=== PATIENT | female | born 1985 | race Caucasian/White ===

== ENCOUNTER 2020-07-16 17:09 | Emergency (ER) | payer SELFPAY ==
[2020-07-16] VITALS (17 sets, daily range): BP systolic 134–172; BP diastolic 97–121; PULSE 82–122; RESP 10–29; TEMP 36.5–36.6; O2SAT 96–100
[2020-07-16] MEDS: Normal Saline 1,000 ML 1000 ML IV (17:30)
[2020-07-16] MEDS: Normal Saline Flush 10 ML SYR IVP (17:30)
[2020-07-16] MEDS: methylPREDNISolone SUCC 125 MG VIAL IVP (17:35)
--- NOTE | 2020-07-16 17:35 | ED.GENADUL_ITS ---
Discharge Plan Disposition Patient Disposition: HOME Condition: Stable Discharge Details Chief Complaint: Allergic Clinical Impression: Allergic reaction, Hypertension Primary Care Provider: Unknown,Unknown ED Provider: Maura Terrazas Home Meds and New Rx's Prescriptions: New Bystolic 10 mg tablet 10 mg PO BID Qty: 60 RF: 0 prednisone 50 mg tablet 50 mg PO DAILY Qty: 4 RF: 0 epinephrine [EpiPen 2-Nathaniel] 0.3 mg/0.3 mL auto-injector 0.3 mg IM Q5-15M PRNQty: 2 RF: 3 Discharge Instructions Instructions: Prednisone (By mouth), Epinephrine (Injection), Nebivolol (By mouth), Hypertension (ED), General Allergic Reaction (ED) Additional Instructions: Please return immediately to the emergency department if you develop any new or worsening symptoms, if your condition does not improve as expected, or if you become otherwise concerned. It is extremely important that you call soon as possible to make an appointment to be seen in follow-up for this visit by your primary care doctor. Stand Alone Forms: Work Release Medical Decision Making Oly Gardner is a 35-year-old woman without reported history of major medical problems who presented to the emergency department with generalized itchy rash, swelling of both hands upon waking, possible wasp sting without other known exposure. On exam patient is well and nontoxic-appearing with generalized fine urticarial rash and bilateral hand swelling. No edema of the oropharynx, no impending airway compromise. Concern for likely allergic reaction versus other. Known hypertension, not currently being treated currently to patient having recently moved and without PCP. No evidence of endorgan damage. Exam/history is not consistent with hypertensive emergency, acute coronary syndrome, toxic shock syndrome, TEN, [place]-Lenny syndrome. Plan for IV fluid hydration, IV Benadryl/Solu-Medrol/Pepcid, screening labs, will monitor and reassess. Patient with significant improvement in appearance of rash and itching approximately 20 minutes after medications administered. We will continue to monitor. Patient reports rash essentially gone, no further itching, hand swelling improved but not resolved. UA negative, urine negative. Labs not resulted at this time, patient elects not to wait, would like to be discharged. Plan to discharge with patient's previously prescribed hypertension medication, EpiPen, prednisone. Had a lengthy discussion with the patient regarding medication use. I had a lengthy discussion with Patient regarding return to emergency department precautions, home care, and importance of outpatient follow-up. Pt verbalizes understanding of the plan and is amenable. Patient discharged to home with clear plan for outpatient follow-up. All questions were answered. Disposition decision was made weighing the risks and benefits of hospitalization versus outpatient treatment, the risk for further decompensation, and the patient's wishes. Pt placed on care management list to establish with PCP, for outpatient follow- up for hypertension/allergic reaction. Medical Records Medical records reviewed: Yes I reviewed the patient's medical records. Lab Data Lab results reviewed: Yes I reviewed the patient's lab results. Labs: Laboratory Tests Range/Units 07/16/20 07/16/20 07/16/20 19:55 20:45 20:45 WBC (4.4-10.8) 10^3/uL 7.46 RBC (3.93-5.22) 10^6/uL 4.99 Hgb (11.2-15.7) g/dL 14.9 Hct (36.0-46.0) % 44.1 MCV (80-95) fL 88.4 MCH (27.0-33.0) pg 29.9 MCHC (32.0-36.0) % 33.8 RDW (11.7-14.6) % 12.7 Plt Count (130-400) 10^3/uL 179 MPV (8.0-11.0) fL 10.8 Immature Gran % 0.3 Neutrophils % 85.3 Lymphocytes % 13.1 Monocytes % 1.2 Eosinophils % 0.0 Basophils % 0.1 Nucleated RBC % % 0 Absolute Neutrophils (1.2-6.7) 10^3/uL 6.36 Absolute Lymphocytes (1.2-3.4) 10^3/uL 0.98 L Absolute Monocytes (0.1-0.8) 10^3/uL 0.09 L Absolute Eosinophils (0.0-0.7) 10^3/uL 0.00 Absolute Basophils (0.0-0.2) 10^3/uL 0.01 Sodium (136-145) mmol/L 137 Potassium (3.5-5.1) mmol/L 4.2 Chloride (98-107) mmol/L 103 Carbon Dioxide (21.0-32.0) mmol/L 25.5 Anion Gap (3-11) mmol/L 8.5 BUN (7-18) mg/dL 13 Creatinine (0.55-1.02) mg/dL 0.82 Estimated GFR/1.73 m2 (mL/min/1.73m2) >= 60.00 Glucose (74-106) mg/dL 129 H Calcium (8.5-10.1) mg/dL 8.2 L Total Bilirubin (0.2-1.0) mg/dL 0.4 AST (15-37) U/L 36 ALT (14-59) U/L 66 H Alkaline Phosphatase (46-116) U/L 63 Total Protein (6.4-8.2) g/dL 7.3 Albumin (3.4-5.0) g/dL 3.5 Urine Color (Yellow) Yellow Urine Clarity (Clear) Clear Urine pH (5-8) 6.0 Ur Specific [place] (1.005-1.025) 1.020 Urine Protein (Negative) mg/dL Negative Urine Ketones (Negative) mg/dL Negative Urine Blood (Negative) Negative Urine Nitrite (Negative) Negative Urine Bilirubin (Negative) Negative Urine Urobilinogen (Up TO 0.2) EU/dL 0.2 Ur Leukocyte Esterase (Negative) Negative Urine Glucose (Negative) mg/dL Negative HPI General Mode of arrival: ambulatory . Date/Time Provider Initiated Documentation: 07/16/20 17:29 . Limitations to Documentation: no limitations . Information obtained by: patient, RN notes reviewed and old records reviewed . HPI Narrative: Oly Gardner is a 35-year-old woman with a history of hypertension presenting to the emergency department with hives and itching. Patient reports that she has been feeling well and in her usual state of health until she woke up today. Patient works the film processing shift supervisor, and woke up at 4 PM this afternoon. Patient reports that upon waking, she noticed that she had itchy hives over her legs and forearms, which spread progressively over her abdomen, chest, back. Patient also reports that she had swelling of both hands upon waking that has gradually gotten worse. She states that she noticed a wasp on her pillow after waking, and is unsure whether she was stung or not. She denies shortness of breath, facial swelling, throat tightness, tongue or lip swelling, any pain, fevers, cough, vomiting, diarrhea, numbness, localized weakness. Patient denies ever having similar symptoms in the past. Has had multiple be and lost things in the past without reaction. Patient denies any known new food/detergent/other exposures, denies new meds. Patient denies drug allergies or known environmental allergies. Patient denies any recent illness. Has been eating and drinking as usual. Patient reports that she recently moved here and does not have a primary care doctor. Patient reports that she has had high blood pressure since being in the past, and was previously taking 10 mg of Bystolic twice daily. Patient reports that she has not been taking her blood pressure medication recently as she ran out and has not established care with a primary care doctor. Related Data Home Medications Medication Instructions Recorded Confirmed epinephrine [EpiPen 2-Nathaniel] 0.3 mg IM Q5-15M PRN #2 each 07/16/20 nebivolol [Bystolic] 10 mg PO BID #60 tab 07/16/20 prednisone 50 mg PO DAILY #4 tab 07/16/20 Previous Rx's Medication Instructions Recorded epinephrine [EpiPen 2-Nathaniel] 0.3 mg IM Q5-15M PRN #2 each 07/16/20 nebivolol [Bystolic] 10 mg PO BID #60 tab 07/16/20 prednisone 50 mg PO DAILY #4 tab 07/16/20 Allergies Allergy/AdvReac Type Severity Reaction Status Date / Time No Known Allergies Allergy Unverified 07/16/20 17:18 General Stated Complaint: Allergic BUSTER: 3 Review of Systems Narrative: Constitutional: denies fevers Eyes: denies eye pain ENT: denies ear pain, dental pain, sore throat Cardiovascular: denies chest pain, reports hand swelling as per HPI Respiratory: denies SOB, cough GI: denies abdominal pain, vomiting, diarrhea : denies flank pain MSK: denies back pain, neck pain, arthralgias, myalgias Skin: Reports itching, rash as per HPI Neuro: denies headaches, numbness, weakness [facility] Social History Smoking/Tobacco Use Status: Current every day Tobacco Type: cigarettes Substance use type: does not use Exam Narrative Exam Narrative: Constitutional: well and [id number], pleasant, conversing normally HENT: head atraumatic/normocephalic/normal inspection, mucous membranes moist, uvula midline, no edema of the lips or tongue no drooling or pooling of secretions, normal voice Eyes: conjunctiva normal, sclera normal, pupils 3mm b/l Neck: no stridor, normal ROM, trachea midline Chest: normal inspection Resp: normal work of breathing, LCTAB Cardio: normal rate, normal rhythm, no murmur appreciated GI: abdomen soft, non-tender, non-distended Skin: warm, dry, normal color, fine urticarial rash over forearms, legs, lower abdomen, and back, spares the palms Neuro: alert, not altered, grossly non-focal, normal tone Ext: 2+ edema bilateral hands, no edema of the lower extremities, no posterior calf tenderness palpation Psych: normal mood, normal affect, normal behavior Course Vital Signs Vital signs: Vital Signs Temperature 36.5 C 07/16/20 17:14 Pulse 122 H 07/16/20 17:14 Respiratory Rate 16 07/16/20 17:14 Blood Pressure 139/97 H 07/16/20 17:14 Pulse Oximetry 100 07/16/20 17:14 Temperature 36.5 C 07/16/20 17:14 Temperature Source Skin 07/16/20 17:14 Pulse 122 H 07/16/20 17:14 Respiratory Rate 16 07/16/20 17:14 Respiratory Effort Non-Labored 07/16/20 17:14 Blood Pressure 139/97 H 07/16/20 17:14 Blood Pressure Position Sitting 07/16/20 17:14 Pulse Oximetry 100 07/16/20 17:14 Oxygen Delivery Method Room Air 07/16/20 17:14 Oxygen Flow Rate 0 07/16/20 17:14 Pain Level 1 07/16/20 17:14
[2020-07-16] MEDS: diphenhydrAMINE 50 MG/ML VIAL 25 MG IVP (17:38)
[2020-07-16] MEDS: FAMOTIDINE 20 MG/50 ML BAG 200 MG IVPB (17:45)
--- NOTE | 2020-07-16 18:25 | NUR.NOTE ---
Nursing Note: Referral for patient needing PCP, follow up within one week, given to Care Management. Opal Matson
[2020-07-16 20:27] LABS: Bilirubin Negative (Negative); Blood Negative (Negative); Clarity Clear (Clear); Glucose Negative (Negative); Ketones Negative (Negative); Leukocyte Esterase Negative (Negative); Nitrite Negative (Negative); Urobilinogen 0.2 EU/dL (Up TO 0.2)
[2020-07-16 20:54] LABS: Abs Immature Grans 0.02 10^3/uL (0.0-0.06); Absolute Basophil Count 0.01 10^3/uL (0.0-0.2); Absolute Lymphocyte Count 0.98 10^3/uL (1.2-3.4); Absolute Monocyte Count 0.09 10^3/uL (0.1-0.8); Absolute Neutrophil Count 6.36 10^3/uL (1.2-6.7); Basophils % 0.1; HCT 44.1 % (36.0-46.0); HGB 14.9 g/dL (11.2-15.7); Immature Grans % 0.3; Lymphocytes % 13.1; MCH 29.9 pg (27.0-33.0); MCHC 33.8 % (32.0-36.0); MCV 88.4 fL (80-95); MPV 10.8 fL (8.0-11.0); Monocytes % 1.2; Neutrophils % 85.3; Nucleated RBC 0 %; Platelet Count 179 10^3/uL (130-400); RBC 4.99 10^6/uL (3.93-5.22); RDW 12.7 % (11.7-14.6); RDW-SD 41.1 fL; WBC 7.46 10^3/uL (4.4-10.8)
[2020-07-16 21:14] LABS: ALT 66 U/L (14-59); AST 36 U/L (15-37); Albumin 3.5 g/dL (3.4-5.0); Alkaline Phosphatase 63 U/L (46-116); Anion Gap 8.5 mmol/L (3-11); BUN 13 mg/dL (7-18); Bilirubin, Total 0.4 mg/dL (0.2-1.0); CO2 25.5 mmol/L (21.0-32.0); CREATININE 0.82 mg/dL (0.55-1.02); Calcium 8.2 mg/dL (8.5-10.1); Chloride 103 mmol/L (98-107); Glucose 129 mg/dL (74-106); Potassium 4.2 mmol/L (3.5-5.1); Sodium 137 mmol/L (136-145); Total Protein 7.3 g/dL (6.4-8.2)
--- NOTE | 2020-07-17 08:42 | CMPROGNOTE_ITS ---
- If Service Date Differs Date of service: 07/17/20 Time of Service: 08:42 Care Management Progress Note At the request of ED provider, JONEL coordinates referral to Merry Guerrero aprn, on-call provider, of [facility] to assist Oly in obtaining a follow-up appointment and in establishing care with PCP.
== END 2020-07-16 21:20 | disposition home or self-care (01) ==
PROVIDERS: Emergency Provider Student in an Organized Health Care Education/Training Program
DX: T78.40XA Allergy, unspecified, initial encounter (principal); R22.33 Localized swelling, mass and lump, upper limb, bilateral; L50.9 Urticaria, unspecified; I10 Essential (primary) hypertension
CPT/HCPCS: 36415; 80053; 81025; 96361; 96365; 96375; 99284; 81003; 85025; J1200; J2930

== ENCOUNTER 2025-08-11 15:42 | Outpatient (REF) | payer MEDICAID, SELFPAY | END 2025-08-11 15:43 | disposition home or self-care (01) | LOC: LBN 15:42 | PROVIDERS: Visit Provider Physician Assistant Medical | DX: T19.2XXA Foreign body in vulva and vagina, initial encounter (principal) | CPT/HCPCS: 87480; 87510; 87660 ==